=== PATIENT | female | born 1975 | race Caucasian/White ===

== ENCOUNTER 2019-01-15 17:53 | Emergency (ER) | payer OTHER, SELFPAY ==
[2019-01-15 17:56] VITALS: BP 117/78; PULSE 70; RESP 16; TEMP 37.1; O2SAT 100
--- NOTE | 2019-01-15 22:11 | ED_ITS ---
HPI - Wound/Laceration <LARY Cortez - Last Filed: 01/15/19 22:11> General Chief Complaint: Wound/Laceration Stated Complaint: CUT LEFT INDEX FINGER Time Seen by Provider: 01/15/19 19:57 Source: patient and family Mode of arrival: ambulatory Limitations: no limitations History of Present Illness HPI narrative: The patient is a 43-year-old female who states her tetanus is up-to-date who presents with a laceration to the 2nd digit of her left hand. She states her tetanus is up-to-date. She states she cut herself with a sharp kitchen knife. She did not wash it out. She states her range of motion is full. Review of Systems <LARY Cortez - Last Filed: 01/15/19 22:11> Review of Systems GENERAL: Denies chills, fatigue, malaise, fever, sweats. HEENT: Denies sinus pain, ear pain, sore throat, difficulty swallowing, dizziness. RESPIRATORY: Denies dyspnea, cough, wheezing, hemoptysis, sputum. CARDIOVASCULAR: Denies chest pain, palpitations, orthopnea, edema, GASTROINTESTINAL: Denies nausea, vomiting, abdominal pain, diarrhea, constipation, melena. : Denies dysuria, frequency, incontinence, hematuria, urinary retention. MUSCULOSKELETAL: denies weakness, joint pain, or bony pain SKIN: See HPI NEUROLOGIC: Denies weakness, headache, numbness, change in speech, confusion, seizures, incoordination. PSYCHIATRIC: No concerning psychosocial issues. 12 point review of systems is negative except for those stated above Exam <CATARINO Cortez - Last Filed: 01/15/19 22:11> Narrative Exam Narrative: GENERAL: This is a well-nourished, well-developed patient, no acute distress HEAD: Atraumatic. Normocephalic. No temporal or scalp tenderness. EYES: Pupils equal round and reactive. Extraocular motions intact. No scleral icterus. No injection or drainage. ENT: Nose without bleeding, purulent drainage or septal hematoma. Throat without erythema, tonsillar hypertrophy or exudate. Uvula midline. Airway patent. NECK: Trachea midline. No JVD or lymphadenopathy. Supple, nontender, no meningeal signs. CARDIOVASCULAR: Regular rate and rhythm RESPIRATORY: No cough. No increased respiratory effort. No stridor. EXTREMITIES: Full range of motion noted left 2nd digit. Capillary refill less than 2 seconds. Positive radial pulse right hand. BACK: Nontender without deformity or crepitance. No flank tenderness. NEURO: AOx3. SKIN: 0.5 cm avulsion laceration lateral aspect left 2nd digit. Through dermis. No bleeding on exam. No obvious foreign body. No obvious muscle or tendon involvement. Initial Vital Signs Initial Vital Signs: Vital Signs Temperature 98.8 F 01/15/19 17:56 Pulse Rate 70 01/15/19 17:56 Respiratory Rate 16 01/15/19 17:56 Blood Pressure 117/78 01/15/19 17:56 Pulse Oximetry 100 01/15/19 17:56 <Antonio Pierce MD - Last Filed: 01/16/19 06:56> Initial Vital Signs Initial Vital Signs: Vital Signs Temperature 98.8 F 01/15/19 17:56 Pulse Rate 70 01/15/19 17:56 Respiratory Rate 16 01/15/19 17:56 Blood Pressure 117/78 01/15/19 17:56 Pulse Oximetry 100 01/15/19 17:56 Course <LARY Cortez - Last Filed: 01/15/19 22:11> Vital Signs - 8 hr 01/15/19 17:56 Temperature 98.8 F Pulse Rate 70 Respiratory Rate 16 Blood Pressure 117/78 Pulse Oximetry 100 <Antonio Pierce MD - Last Filed: 01/16/19 06:56> Vital Signs - 8 hr 01/15/19 17:56 Temperature 98.8 F Pulse Rate 70 Respiratory Rate 16 Blood Pressure 117/78 Pulse Oximetry 100 MDM - Wound/Laceration <LARY Cortez - Last Filed: 01/15/19 22:11> [facility] Narrative Medical decision making narrative: The patient's wound was cleansed with iodine. She is neurovascularly intact. Given the etiology of the avulsion, I was not able to close the laceration. A dressing was applied. I discussed at length monitoring for signs and symptoms of infections such as redness pus and decreased range of motion. Recommended follow-up with primary care provider. Patient has no questions or concerns on exam. Discharge Plan Departure Patient Disposition: Home Clinical Impression: Avulsion of skin Discharge Date/Time: 01/15/19 22:01 Interventions: ED Discharge Assessment Last Done: 01/15/19 22:01 Instructions: DI for Minor Laceration Activity Restrictions/Additional Instructions: Unfortunately the laceration that you have is unable to be closed. We have lucila ssed it for you. Please monitor for signs and symptoms of infection such as redness from the laceration site, pus and decreased range of motion of the finger pain please follow up with primary care provider if this happens. Please use [id number] pain medications as needed and able. Please come back to the emergency department for any acute concerns such as chest pain, shortness of breath etc. Referrals: Crystal Wilder PA-C [Primary Care Provider] - <Antonio Pierce MD - Last Filed: 01/16/19 06:56> Cosign ED Attending Sandraature Attestation: I was present in the ER at the time of this patient's care. I was available for consultation or to see the patient directly if requested. I agree with the evaluation, assessment and treatment plan noted in the record.
== END 2019-01-15 22:01 | disposition home or self-care (01) ==
PROVIDERS: Emergency Provider Nurse Practitioner Family; PCP Physician Assistant Medical
DX: S61.211A Laceration without foreign body of left index finger without damage to nail, initial encounter (principal); W26.0XXA Contact with knife, initial encounter
CPT/HCPCS: 99282; 99283

== ENCOUNTER 2024-02-14 14:30 | Outpatient (RCR) | payer OTHER, SELFPAY ==
--- NOTE | 2023-12-17 16:55 | PT.OIE ---
Current Diagnoses Lordosis, unspecified, lumbosacral region (12/17/23) Low back pain, unspecified (12/17/23) Muscle weakness (generalized) (12/17/23) Overactive bladder (12/17/23) Stress incontinence (female) (male) (12/17/23) Urge incontinence (12/17/23) Visit Care Team Role Provider Type ALICE Owens Attending Provider Non-Staff Family Provider Primary Care Provider Referring Provider Specialty: Nursing Address: [facility], Fax: Email: Physical Therapy Initial Evaluation PT-OP-A Visit Information Start: 12/07/23 19:17 Freq: Status: Active Protocol: Document 12/17/23 14:34 LRN (Rec: 12/17/23 16:36 LRN [id number]) Out-Patient Physical Therapy Visit Information Visit Information Visit Type Initial Evaluation Visit Start Time 14:34 Visit Stop Time 15:25 Visit Number 1 Evaluation Information Evaluation Date 12/17/23 Precautions Precautions 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 PT-OP-B Current Condition Start: 12/07/23 19:17 Freq: Status: Active Protocol: Document 12/17/23 14:34 LRN (Rec: 12/17/23 16:36 LRN [id number]) Current Condition History of Current Condition Onset Date 3 yrs ago Current Complaints Frequency of urination and urge urinary leakage . History of Current Condition Pt insidious onset 10 yrs ago for urinary incontinence, frequency of urination with urge. She saw a neurologist and was given oxybutynen with increasing potency over the years that never seemed to help. Has been off the medication for 6 months and had no change in her symptoms. 3 yrs ago things worsened to the point that she couldn't hold her urine sometimes for greater than 30 minutes. She has at times been able to go to [place] from [place] before having to stop to usee the bathroom (she uses the bathroom before leaving her house). Prior Treatments and Tests Oxybutynin for past 10 yrs, has been off the medication for 6 months. Developmental History Developmental History 2 daughters ages 21 & 25, both vaginal births w/o complications. First with epiziotomy. Treatment Goals Patient/Caregiver Goals Pt goals: Reduce urinary leakage to be able to kayak or travel 1 hr. Decrease urinary leakage with a cough, sneeze, laugh. Independent HEP at [place]. Current Functional Impairments (Reported) Functional Limitations- ADL's Rides [place] bike every night , 30-45'. 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 Personal Factors Other Personal Factors That May Effect Hx of: Bariatric sleeve Therapy/Recovery surgery, Teresa's disease, Hep A PT-OP-C Subjective Start: 12/07/23 19:17 Freq: Status: Active Protocol: Document 12/17/23 14:34 LRN (Rec: 12/17/23 16:36 LRN [id number]) Patient Questionnaires Pelvic Pain and Urgency/Frequency Patient Symptom Scale Pelvic Pain Score 20 PT-OP-I Pelvic Floor Start: 12/07/23 19:17 Freq: Status: Active Protocol: Document 12/17/23 14:34 LRN (Rec: 12/17/23 16:36 LRN [id number]) Pelvic Floor Assessment Urine Urinary Symptoms Urge Sensation,Falling Out Feeling/Heavy Leakage Cause Cough,Exercise,Sneeze,Urge Other Leakage Causes Laughing Leaks Per Day Constant Voiding Frequency 6x/day Nocturia 3x Pads Used In 24 Hours 2 Washable period underwear/ day Urine Pad Type Depends Bowel Bowel Movement Frequency Every other day [place] Stool Chart Comments Types 2-3 occasionally, mostly type 7 Prolapse Cystocele Grade 2 Perineal Descent Resting Absent Bearing Present Contraction Ability Voluntary Contraction Weak Manual Muscle Testing Left 2 Manual Muscle Testing Right 1 Manual Muscle Testing Anterior 1 Manual Muscle Testing Posterior 2 Muscle Endurance (Seconds) 2 Number of Quick Contractions In 10 5 Seconds Comments Pelvic Floor Comments Pt PF strength of contraction weakened with each contraction . PT-OP-J Posture/Palpation/Skin Start: 12/07/23 19:17 Freq: Status: Active Protocol: Document 12/17/23 14:34 LRN (Rec: 12/17/23 16:36 LRN [id number]) Posture Evaluation Position Standing Head/C-Spine Posture Neutral Position L-Spine Posture Increased Lordosis Shoulder Posture (R) Elevated Scapula Posture (R) Elevated Pelvis Posture Anteriorly Tilted Weight Distribution Balanced Knee Posture (L) Genu Valgus,(R) Genu Valgus Comments Posture Comments Dowagers hump. PT-OP-K Range of Motion Start: 12/07/23 19:17 Freq: Status: Active Protocol: Document 12/17/23 14:34 LRN (Rec: 12/17/23 16:36 LRN [id number]) Lumbar Spine Range of Motion Lumbar Spine Active Degrees Testing Position Standing Flexion 70 Extension 10 Rotation Left 30 Rotation Right 20 Lateral Flexion Left 14 Lateral Flexion Right 8 ROM Limitations Soft Tissue Tightness Hip Goniometric Range of Motion Hip Right Passive Testing Position Supine Abduction 35 Internal Rotation 30 External Rotation 65 Left Passive Testing Position Supine Abduction 35 Internal Rotation 30 External Rotation 60 PT-OP-M Strength Start: 12/07/23 19:17 Freq: Status: Active Protocol: Document 12/17/23 14:34 LRN (Rec: 12/17/23 16:36 LRN [id number]) Trunk Strength Trunk Manual Muscle Testing Core Stabilization Pt has mild rotational core weakness as noted during MMT of LE's. Hip Strength Hip Manual Muscle Testing Right Flexion (L2) 3 Fair Extension (S1) 3 Fair Adduction 3+ Fair+ External Rotation 3 Fair Internal Rotation 3+ Fair+ Comments Strength is 5/5 except as indicated above. Left Flexion (L2) 4 Good Extension (S1) 3 Fair Abduction 4+ Good+ Comments Strength is 5/5 except as indicated above. PT-OP-Q Treatments Start: 12/07/23 19:17 Freq: Status: Active Protocol: Document 12/17/23 14:34 LRN (Rec: 12/17/23 16:36 LRN [id number]) Self-Care/Home Management Treatment Education Other Education Discussed results of evaluation, attendance compliance, goals, and plan of care (POC). Pt agreeable to attendance compliance, goals and POC. Discussed pt to contact referring physician to assess vaginal canal, white chunky discharge. Pt educated in use of Bladder Diary and I/S in tracking for 1 week. Discussed use of 2 different diaries for tracking of bladder. Activities Self-Care/Home Management Activities Issued & reviewed HEP: Kegel ex's and discussed exercise of Quick Flicks, Long Holds and Aggravators. PT-OP-T Assessment and Plan Start: 12/07/23 19:17 Freq: Status: Active Protocol: Document 12/17/23 14:34 LRN (Rec: 12/17/23 16:36 LRN [id number]) Physical Therapy Assessment Rehab Potential Rehabilitation Potential Good Evaluation Complexity Number of Personal Factors/Comorbidities 1-2 Number of Body Systems Impaired 4 or More Clinical Presentation at Evaluation Evolving Impairments Impairments Activity Tolerance,Pain, Posture,ROM,Strength,Transfers Other Impairments White chunky discharge in vaginal canal. Goals Four Impairment LBP stiffness first in the morning. Impairment Trunk AROM: flex 70 deg's, Rot 30 deg's L, 20 deg's R; SB is 14 deg's L, 8 deg's R. Halfway Goal (LTG) Decrease LB stiffness in the morning to improve mobility to get to bathroom first in the morning.. LTG Duration 12 wks-03/10/24 Three Impairment Urge urinary incontinence Impairment PF contraction fatigues after 2 secs hold. Short Term Goal (STG) Pt will be educated in PF urge deference technique to delay urination until toilet voiding . STG Duration 4 wks-01/14/24 Halfway Goal (LTG) Improve PF endurance strength and modify pt's behavior such that the pt will be able to reduce and eliminate urinary leakage to be able to kayak or travel over 1 hr without having to stop to use the bathroom. LTG Duration 12 wks-03/10/24 Two Impairment Urinary Leakage with cough, sneeze, laugh, exercise Impairment PF strength: anterior & R lateral wall - 1/5; posterior & L lateral wall - 2/5 Short Term Goal (STG) Pt will be able to perform 10 Quick PF contractions in isolation of substitute muscles prior to fatigue. STG Duration 6 wks-01/28/24 Halfway Goal (LTG) Improve PF Quick Contraction strength to 3/5 with pt able to eliminate urinary leakage with a cough, sneeze, laugh. LTG Duration 12 wks-03/10/24 One Impairment Pt lacks an independent self care HEP. Short Term Goal (STG) Pt educated in proper transfers to lessen core abdominal pressure with transfers and ADLs. STG Duration 4 wks-01/14/24 Halfway Goal (LTG) Pt will be independent in a self care HEP for PF/hip/core strengthening and hip/trunk ROM exercises. LTG Duration 12 wks-03/10/24 Assessment Summary Assessment Pt is a 48 yo female who appears to have urge incontinence (further assessed after return of bladder diary ) and PF weakness of strength and endurance as well as a cystocele grade 1, and Hip weakness, R>L hip, decreased LB mobility and mornings report of pain and stiff. The pt has a white chunky discharge in her vaginal canal ; therefore the pt is being referred back for further assesment. The pt will benefit from skilled physical therapy to work towards meeting the above stated goals . Physical Therapy Plan Frequency and Duration Frequency of Treatment 1x/Week Duration of treatment (weeks) 12 Plan of Care Start Date 12/17/23 Plan of Care End Date 03/10/24 Therapeutic Interventions Therapeutic Interventions Home Exercise Program,Joint Mobilizations,Manual Therapy, Neuromuscular Re-education, Patient/Caregiver Education, Soft Tissue Mobilization, Therapeutic Activities, Therapeutic Exercises Modalities Biofeedback,Cold Pack/Ice Massage,Electric Stimulation, Hot Packs Next Visit Focus/Plan Next Note Type Treatment Note Next Visit Plan Review bladder diary and make recommendation for proper fluid/food intake, norms for hydration levels/voiding frequency/voiding times; pt education in bladder retraining with urge deference technique, proper Kegel without use of substitute muscles. Education in reduction of intra-abdominal pressure & proper deep breathing with transfers and body mechanics. Education: PF hygiene/care, as needed: proper BM with modifications, bowel care and program. Ex: Bowel massage (if needed) , proper breathing, PF strengthening, Core/TA stab/ strengthening, hip strengthening; trunk and hip stretching. POC: Pt education, Manual therapy. ? (if no infection) Biofeedback with vaginal sensor. Therapeutic Exercises, Therapeutic Activities, Neuromuscular Reeducation.
--- NOTE | 2023-12-24 15:49 | PT.OTN ---
Current Diagnoses Lordosis, unspecified, lumbosacral region (12/24/23) Low back pain, unspecified (12/24/23) Muscle weakness (generalized) (12/24/23) Overactive bladder (12/24/23) Stress incontinence (female) (male) (12/24/23) Urge incontinence (12/24/23) Physical Therapy Treatment Note PT-OP-A Visit Information Start: 12/07/23 19:17 Freq: Status: Active Protocol: Document 12/24/23 14:40 LRN (Rec: 12/24/23 15:49 LRN [id number]) Out-Patient Physical Therapy Visit Information Visit Information Visit Type Treatment Note Visit Start Time 14:40 Visit Stop Time 15:20 Visit Number 2 Evaluation Information Evaluation Date 12/17/23 Precautions Precautions 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 PT-OP-B Current Condition Start: 12/07/23 19:17 Freq: Status: Active Protocol: Document 12/17/23 14:34 LRN (Rec: 12/17/23 16:36 LRN [id number]) Current Condition History of Current Condition Onset Date 3 yrs ago Current Complaints Frequency of urination and urge urinary leakage . History of Current Condition Pt insidious onset 10 yrs ago for urinary incontinence, frequency of urination with urge. She saw a neurologist and was given oxybutynen with increasing potency over the years that never seemed to help. Has been off the medication for 6 months and had no change in her symptoms. 3 yrs ago things worsened to the point that she couldn't hold her urine sometimes for greater than 30 minutes. She has at times been able to go to [place] from [place] before having to stop to usee the bathroom (she uses the bathroom before leaving her house). Prior Treatments and Tests Oxybutynin for past 10 yrs, has been off the medication for 6 months. Developmental History Developmental History 2 daughters ages 21 & 25, both vaginal births w/o complications. First with epiziotomy. Treatment Goals Patient/Caregiver Goals Pt goals: Reduce urinary leakage to be able to kayak or travel 1 hr. Decrease urinary leakage with a cough, sneeze, laugh. Independent HEP at [place]. Current Functional Impairments (Reported) Functional Limitations- ADL's Rides [place] bike every night , 30-45'. 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 Personal Factors Other Personal Factors That May Effect Hx of: Bariatric sleeve Therapy/Recovery surgery, Teresa's disease, Hep A PT-OP-C Subjective Start: 12/07/23 19:17 Freq: Status: Active Protocol: Document 12/24/23 14:40 LRN (Rec: 12/24/23 15:49 LRN [id number]) OP-PT Subjective Patient Comments Patient Comments States her bladder is very consistent. Kegels 2x/day. January 06 appt with flight paramedic PT-OP-I Pelvic Floor Start: 12/07/23 19:17 Freq: Status: Active Protocol: Document 12/17/23 14:34 LRN (Rec: 12/17/23 16:36 LRN [id number]) Pelvic Floor Assessment Urine Urinary Symptoms Urge Sensation,Falling Out Feeling/Heavy Leakage Cause Cough,Exercise,Sneeze,Urge Other Leakage Causes Laughing Leaks Per Day Constant Voiding Frequency 6x/day Nocturia 3x Pads Used In 24 Hours 2 Washable period underwear/ day Urine Pad Type Depends Bowel Bowel Movement Frequency Every other day [place] Stool Chart Comments Types 2-3 occasionally, mostly type 7 Prolapse Cystocele Grade 2 Perineal Descent Resting Absent Bearing Present Contraction Ability Voluntary Contraction Weak Manual Muscle Testing Left 2 Manual Muscle Testing Right 1 Manual Muscle Testing Anterior 1 Manual Muscle Testing Posterior 2 Muscle Endurance (Seconds) 2 Number of Quick Contractions In 10 5 Seconds Comments Pelvic Floor Comments Pt PF strength of contraction weakened with each contraction . PT-OP-J Posture/Palpation/Skin Start: 12/07/23 19:17 Freq: Status: Active Protocol: Document 12/17/23 14:34 LRN (Rec: 12/17/23 16:36 LRN [id number]) Posture Evaluation Position Standing Head/C-Spine Posture Neutral Position L-Spine Posture Increased Lordosis Shoulder Posture (R) Elevated Scapula Posture (R) Elevated Pelvis Posture Anteriorly Tilted Weight Distribution Balanced Knee Posture (L) Genu Valgus,(R) Genu Valgus Comments Posture Comments Dowagers hump. PT-OP-K Range of Motion Start: 12/07/23 19:17 Freq: Status: Active Protocol: Document 12/17/23 14:34 LRN (Rec: 12/17/23 16:36 LRN [id number]) Lumbar Spine Range of Motion Lumbar Spine Active Degrees Testing Position Standing Flexion 70 Extension 10 Rotation Left 30 Rotation Right 20 Lateral Flexion Left 14 Lateral Flexion Right 8 ROM Limitations Soft Tissue Tightness Hip Goniometric Range of Motion Hip Right Passive Testing Position Supine Abduction 35 Internal Rotation 30 External Rotation 65 Left Passive Testing Position Supine Abduction 35 Internal Rotation 30 External Rotation 60 PT-OP-M Strength Start: 12/07/23 19:17 Freq: Status: Active Protocol: Document 12/17/23 14:34 LRN (Rec: 12/17/23 16:36 LRN [id number]) Trunk Strength Trunk Manual Muscle Testing Core Stabilization Pt has mild rotational core weakness as noted during MMT of LE's. Hip Strength Hip Manual Muscle Testing Right Flexion (L2) 3 Fair Extension (S1) 3 Fair Adduction 3+ Fair+ External Rotation 3 Fair Internal Rotation 3+ Fair+ Comments Strength is 5/5 except as indicated above. Left Flexion (L2) 4 Good Extension (S1) 3 Fair Abduction 4+ Good+ Comments Strength is 5/5 except as indicated above. PT-OP-Q Treatments Start: 12/07/23 19:17 Freq: Status: Active Protocol: Document 12/24/23 14:40 LRN (Rec: 12/24/23 15:49 LRN [id number]) Therapeutic Exercises Supine Exercises Kegel w/ball squeeze Supine Exercise Name Kegel/ball squeeze w/retighten every 3, and Kegel/ after 3 ,balls squeeze Equipment Used Ball Reps/Minutes 10 SH w/retightening every 3 secs if needed Kegel Supine Exercise Name Kegel long and quick contractions and in isolation of substitute ms. Reps/Minutes 12' Comments Extra time to train for isolation of PF ms Therapeutic Activity Therapeutic Activity Transfer training coordinating breathwork Name Sup>Sit coordinating breathwork with each movement Reps/Minutes 3' Comments Verbal and phy cuing needed to perform correctly. Bladder retraining Name Urge deference technique training Reps/Minutes 5' Comments Extra time needed for discussion and training. Pt needed v cuing with each stage of training. Self-Care/Home Management Treatment Education Other Education Reviewed Bladder diary and discussed consistency of urination of every 2-3 hrs, even into the night, fluid intake/output and norms for hydration levels, diet needing more vegs and more fluids, and voiding frequency/voiding times, decreasing fluids at night with more fluid consumption during the day. Pt hydration norm is 97 oz (1/ 2 body wgt), pt is drinking 50 oz. Discussed the POC for retraining the bladder. Pt education in bladder irritants & Kegel without use of substitute muscles. Activities Self-Care/Home Management Activities Issued handout for Bladder retraining and Foods/Beverages Bladder Diet. PT-OP-T Assessment and Plan Start: 12/07/23 19:17 Freq: Status: Active Protocol: Document 12/24/23 14:40 LRN (Rec: 12/24/23 15:49 LRN [id number]) Physical Therapy Assessment Goals Four Impairment LBP stiffness first in the morning. Impairment Trunk AROM: flex 70 deg's, Rot 30 deg's L, 20 deg's R; SB is 14 deg's L, 8 deg's R. [facility] Goal (LTG) Decrease LB stiffness in the morning to improve mobility to get to bathroom first in the morning. LTG Duration 12 wks-03/10/24 Three Impairment Urge urinary incontinence Impairment PF contraction fatigues after 2 secs hold. Short Term Goal (STG) Pt will be educated in PF urge deference technique to delay urination until toilet voiding . 12/24/23: Pt educated and practiced Urge deference technique. 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 LTG Duration 12 wks-03/10/24 Two Impairment Urinary Leakage with cough, sneeze, laugh, exercise Impairment PF strength: anterior & R lateral wall - 1/5; posterior & L lateral wall - 2/5 Short Term Goal (STG) Pt will be able to perform 10 Quick PF contractions in isolation of substitute muscles prior to fatigue. STG Duration 6 wks-01/28/24 Food And Beverage Manager Goal (LTG) Improve PF Quick Contraction strength to 3/5 with pt able to eliminate urinary leakage with a cough, sneeze, laugh. LTG Duration 12 wks-03/10/24 One Impairment Pt lacks an independent self care HEP. Short Term Goal (STG) Pt educated in proper transfers to lessen core abdominal pressure with transfers and ADLs. 12/24/23: Initiated core pressure mgmt training for sup >sit. STG Duration 4 wks-01/14/24 progressed [facility] Goal (LTG) Pt will be independent in a self care HEP for PF/hip/core strengthening and hip/trunk ROM exercises. 12/24/23: I/S pt in isolated Kegel with Ball squeeze. LTG Duration 12 wks-03/10/24 progressed 12/24/23 Assessment Summary Assessment Pt is a 48 yo female who appears to have urge incontinence and habits that contribute to her frequency of voiding and need to urinate; another cause of urinary leakage is PF weakness of strength and endurance as well as a cystocele grade 1, and hip weakness, R>L hip, decreased LB mobility and mornings report of pain and stiff. Per bladder diary review, she shows a very regular bladder of voiding frequency every 2-3 hrs, due to consistent behaviors with low hydration, GI constipation with decreased vege intake. Today the pt showed good understanding of isolating her PF with contractions after training, and she notes weakening of her PF contraction after 2 secs of holding. She tends to breathhold w/mvmt and ex, and uses substitute ms with a Kegel. Physical Therapy Plan Frequency and Duration Frequency of Treatment 1x/Week Duration of treatment (weeks) 12 Plan of Care Start Date 12/17/23 Plan of Care End Date 03/10/24 Next Visit Focus/Plan Next Note Type Treatment Note Next Visit Plan Complete education in reduction of intra-abdominal pressure & proper deep breathing with transfers and body mechanics. Education: PF hygiene/care, as needed: proper BM with modifications, bowel care and program. Ex: Bowel massage (if needed) , proper breathing, PF strengthening, Core/TA stab/ strengthening, hip strengthening; trunk and hip stretching. POC: Pt education, Manual therapy. ? (if no infection) Biofeedback with vaginal sensor. Therapeutic Exercises, Therapeutic Activities, Neuromuscular Reeducation.
--- NOTE | 2023-12-31 15:38 | PT.OTN ---
Current Diagnoses Lordosis, unspecified, lumbosacral region (12/31/23) Low back pain, unspecified (12/31/23) Muscle weakness (generalized) (12/31/23) Overactive bladder (12/31/23) Stress incontinence (female) (male) (12/31/23) Urge incontinence (12/31/23) Physical Therapy Treatment Note PT-OP-A Visit Information Start: 12/07/23 19:17 Freq: Status: Active Protocol: Document 12/31/23 14:36 LRN (Rec: 12/31/23 15:38 LRN [id number]) Out-Patient Physical Therapy Visit Information Visit Information Visit Type Treatment Note Visit Start Time 14:35 Visit Stop Time 15:16 Visit Number 3 Evaluation Information Evaluation Date 12/17/23 Precautions Precautions History of Bariatic sleeve surgery, 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 PT-OP-B Current Condition Start: 12/07/23 19:17 Freq: Status: Active Protocol: Document 12/17/23 14:34 LRN (Rec: 12/17/23 16:36 LRN [id number]) Current Condition History of Current Condition Onset Date 3 yrs ago Current Complaints Frequency of urination and urge urinary leakage . History of Current Condition Pt insidious onset 10 yrs ago for urinary incontinence, frequency of urination with urge. She saw a neurologist and was given oxybutynen with increasing potency over the years that never seemed to help. Has been off the medication for 6 months and had no change in her symptoms. 3 yrs ago things worsened to the point that she couldn't hold her urine sometimes for greater than 30 minutes. She has at times been able to go to [place] from [place] before having to stop to usee the bathroom (she uses the bathroom before leaving her house). Prior Treatments and Tests Oxybutynin for past 10 yrs, has been off the medication for 6 months. Developmental History Developmental History 2 daughters ages 21 & 25, both vaginal births w/o complications. First with epiziotomy. Treatment Goals Patient/Caregiver Goals Pt goals: Reduce urinary leakage to be able to kayak or travel 1 hr. Decrease urinary leakage with a cough, sneeze, laugh. Independent HEP at [facility]. Current Functional Impairments (Reported) Functional Limitations- ADL's Rides [place] bike every night , 30-45'. 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 Personal Factors Other Personal Factors That May Effect Hx of: Bariatric sleeve Therapy/Recovery surgery, Teresa's disease, Hep A PT-OP-C Subjective Start: 12/07/23 19:17 Freq: Status: Active Protocol: Document 12/31/23 14:36 LRN (Rec: 12/31/23 15:38 LRN [id number]) OP-PT Subjective Patient Comments Patient Comments Doing Kegels. Noticed she could hold her urine longer than typical (an hour, holding a total of 3 hrs), fluid intake was normal. LBP occasional /10. Has increased fiber and water. PT-OP-I Pelvic Floor Start: 12/07/23 19:17 Freq: Status: Active Protocol: Document 12/17/23 14:34 LRN (Rec: 12/17/23 16:36 LRN [id number]) Pelvic Floor Assessment Urine Urinary Symptoms Urge Sensation,Falling Out Feeling/Heavy Leakage Cause Cough,Exercise,Sneeze,Urge Other Leakage Causes Laughing Leaks Per Day Constant Voiding Frequency 6x/day Nocturia 3x Pads Used In 24 Hours 2 Washable period underwear/ day Urine Pad Type Depends Bowel Bowel Movement Frequency Every other day [place] Stool Chart Comments Types 2-3 occasionally, mostly type 7 Prolapse Cystocele Grade 2 Perineal Descent Resting Absent Bearing Present Contraction Ability Voluntary Contraction Weak Manual Muscle Testing Left 2 Manual Muscle Testing Right 1 Manual Muscle Testing Anterior 1 Manual Muscle Testing Posterior 2 Muscle Endurance (Seconds) 2 Number of Quick Contractions In 10 5 Seconds Comments Pelvic Floor Comments Pt PF strength of contraction weakened with each contraction . PT-OP-J Posture/Palpation/Skin Start: 12/07/23 19:17 Freq: Status: Active Protocol: Document 12/17/23 14:34 LRN (Rec: 12/17/23 16:36 LRN [id number]) Posture Evaluation Position Standing Head/C-Spine Posture Neutral Position L-Spine Posture Increased Lordosis Shoulder Posture (R) Elevated Scapula Posture (R) Elevated Pelvis Posture Anteriorly Tilted Weight Distribution Balanced Knee Posture (L) Genu Valgus,(R) Genu Valgus Comments Posture Comments Dowagers hump. PT-OP-K Range of Motion Start: 12/07/23 19:17 Freq: Status: Active Protocol: Document 12/17/23 14:34 LRN (Rec: 12/17/23 16:36 LRN [id number]) Lumbar Spine Range of Motion Lumbar Spine Active Degrees Testing Position Standing Flexion 70 Extension 10 Rotation Left 30 Rotation Right 20 Lateral Flexion Left 14 Lateral Flexion Right 8 ROM Limitations Soft Tissue Tightness Hip Goniometric Range of Motion Hip Right Passive Testing Position Supine Abduction 35 Internal Rotation 30 External Rotation 65 Left Passive Testing Position Supine Abduction 35 Internal Rotation 30 External Rotation 60 PT-OP-M Strength Start: 12/07/23 19:17 Freq: Status: Active Protocol: Document 12/17/23 14:34 LRN (Rec: 12/17/23 16:36 LRN [id number]) Trunk Strength Trunk Manual Muscle Testing Core Stabilization Pt has mild rotational core weakness as noted during MMT of LE's. Hip Strength Hip Manual Muscle Testing Right Flexion (L2) 3 Fair Extension (S1) 3 Fair Adduction 3+ Fair+ External Rotation 3 Fair Internal Rotation 3+ Fair+ Comments Strength is 5/5 except as indicated above. Left Flexion (L2) 4 Good Extension (S1) 3 Fair Abduction 4+ Good+ Comments Strength is 5/5 except as indicated above. PT-OP-Q Treatments Start: 12/07/23 19:17 Freq: Status: Active Protocol: Document 12/31/23 14:36 LRN (Rec: 12/31/23 15:38 LRN [id number]) Therapeutic Exercises Supine Exercises Kegel w/ball squeeze Supine Exercise Name Kegel/ball squeeze w/retighten every 2-3 Equipment Used Ball Reps/Minutes 10 SH w/retightening every 3 secs if needed Comments Cued to check for PF contraction hold after 2 sec, then 3 secs. Kegel Supine Exercise Name Kegel long and quick contractions and in isolation of substitute ms. Reps/Minutes 9' Comments Extra time to train for isolation of PF ms Therapeutic Activity Therapeutic Activity ADL body mechanics w/Kegel/breathwork Name ADL body mechanics w/Kegel/ breathwork Reps/Minutes 8' Bowel program training Name Bowel Program Reps/Minutes 13' Comments Reviewed diet for bowel program & discussed and taught Bowel massage. Bowel Massage training. Self-Care/Home Management Treatment Activities Self-Care/Home Management Activities Issued & reviewed handouts for : Bowel massage & Bowel Care program. PT-OP-T Assessment and Plan Start: 12/07/23 19:17 Freq: Status: Active Protocol: Document 12/31/23 14:36 LRN (Rec: 12/31/23 15:38 LRN [id number]) Physical Therapy Assessment Goals Four Impairment LBP stiffness first in the morning. Impairment Trunk AROM: flex 70 deg's, Rot 30 deg's L, 20 deg's R; SB is 14 deg's L, 8 deg's R. Occasional LBP 11/10. Nursing Home Goal (LTG) Decrease LB stiffness in the morning to improve mobility to get to bathroom first in the morning. 12/31/23: 10% less low back stiffness. LTG Duration 12 wks-03/10/24 progressing 12/31/23 Three Impairment Urge urinary incontinence Impairment PF contraction fatigues after 2 secs hold. Short Term Goal (STG) Pt will be educated in PF urge deference technique to delay urination until toilet voiding . 12/24/23: Pt educated and practiced Urge deference technique. STG Duration 4 wks-01/14/24 (12/24/23: MET GOAL) Ferryboat Operator Helper Goal (LTG) Improve PF endurance strength and modify pt's behavior such that the pt will be able to reduce and eliminate urinary leakage to be able to kayak or travel over 1 hr without having to stop to use the bathroom. LTG Duration 12 wks-03/10/24 Two Impairment Urinary Leakage with cough, sneeze, laugh, exercise Impairment PF strength: anterior & R lateral wall - 1/5; posterior & L lateral wall - 2/5 Short Term Goal (STG) Pt will be able to perform 10 Quick PF contractions in isolation of substitute muscles prior to fatigue. STG Duration 6 wks-01/28/24 Nursing Home Goal (LTG) Improve PF Quick Contraction strength to 3/5 with pt able to eliminate urinary leakage with a cough, sneeze, laugh. LTG Duration 12 wks-03/10/24 One Impairment Pt lacks an independent self care HEP. Short Term Goal (STG) Pt educated in proper transfers to lessen core abdominal pressure with transfers and ADLs. 12/24/23: Initiated core pressure mgmt training for sup >sit. 12/31/23: Pt educated in core pressure mgmt of ADL body mechanics. STG Duration 4 wks-01/14/24 (12/31/23: MET GOAL) Nursing Home Goal (LTG) Pt will be independent in a self care HEP for PF/hip/core strengthening and hip/trunk ROM exercises. 12/24/23: I/S pt in isolated Kegel with Ball squeeze. 12/31/23: I/S pt in Kegel with ADLs and transfers, hold 3 secs or greater. LTG Duration 12 wks-03/10/24 progressed 12/31/23 Assessment Summary Assessment 48 yo fem w/urge incontinence and habits that contribute to incr'd voiding & need to urinate; urinary leakage due to PF weakness and low endurance w/cystocele grade 1; and R>L hip weakness, decreased LB mobility w/AM pain and stiff. Today the pt reports having 10% less stiffness, and had 3 hrs between voids x 1 w/o urinary leakage. Pt receptive to Bowel care and body mechanics training. Physical Therapy Plan Frequency and Duration Frequency of Treatment 1x/Week Duration of treatment (weeks) 12 Plan of Care Start Date 12/17/23 Plan of Care End Date 03/10/24 Next Visit Focus/Plan Next Note Type Treatment Note Next Visit Plan Next: Assess response to bowel care program and review Bowel massage. Education: PF hygiene/care, as needed: proper BM with modifications (squatty potty). Ex: proper breathing, PF strengthening, Core/TA stab/ strengthening, hip strengthening; trunk and hip stretching. POC: Pt education, Manual therapy. ? (if no infection) Biofeedback with vaginal sensor. Therapeutic Exercises, Therapeutic Activities, Neuromuscular Reeducation.
--- NOTE | 2024-01-14 15:42 | PT.OTN ---
Current Diagnoses Lordosis, unspecified, lumbosacral region (01/14/24) Low back pain, unspecified (01/14/24) Muscle weakness (generalized) (01/14/24) Overactive bladder (01/14/24) Stress incontinence (female) (male) (01/14/24) Urge incontinence (01/14/24) Physical Therapy Treatment Note PT-OP-A Visit Information Start: 12/07/23 19:17 Freq: Status: Active Protocol: Document 01/14/24 14:40 LRN (Rec: 01/14/24 15:38 LRN [id number]) Out-Patient Physical Therapy Visit Information Visit Information Visit Type Treatment Note Visit Start Time 14:40 Visit Stop Time 15:22 Visit Number 4 Evaluation Information Evaluation Date 12/17/23 Precautions Precautions History of Bariatic sleeve surgery, 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 PT-OP-B Current Condition Start: 12/07/23 19:17 Freq: Status: Active Protocol: Document 12/17/23 14:34 LRN (Rec: 12/17/23 16:36 LRN [id number]) Current Condition History of Current Condition Onset Date 3 yrs ago Current Complaints Frequency of urination and urge urinary leakage . History of Current Condition Pt insidious onset 10 yrs ago for urinary incontinence, frequency of urination with urge. She saw a neurologist and was given oxybutynen with increasing potency over the years that never seemed to help. Has been off the medication for 6 months and had no change in her symptoms. 3 yrs ago things worsened to the point that she couldn't hold her urine sometimes for greater than 30 minutes. She has at times been able to go to [place] from [place] before having to stop to usee the bathroom (she uses the bathroom before leaving her house). Prior Treatments and Tests Oxybutynin for past 10 yrs, has been off the medication for 6 months. Developmental History Developmental History 2 daughters ages 21 & 25, both vaginal births w/o complications. First with epiziotomy. Treatment Goals Patient/Caregiver Goals Pt goals: Reduce urinary leakage to be able to kayak or travel 1 hr. Decrease urinary leakage with a cough, sneeze, laugh. Independent HEP at [place]. Current Functional Impairments (Reported) Functional Limitations- ADL's Rides [place] bike every night , 30-45'. 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 Personal Factors Other Personal Factors That May Effect Hx of: Bariatric sleeve Therapy/Recovery surgery, Teresa's disease, Hep A PT-OP-C Subjective Start: 12/07/23 19:17 Freq: Status: Active Protocol: Document 01/14/24 14:40 LRN (Rec: 01/14/24 15:38 LRN [id number]) OP-PT Subjective Patient Comments Patient Comments Went to last sunday and was told she had a bacterial infection in vagina, has been on high dose of anti-biotic for past week, one more dose left. PT-OP-I Pelvic Floor Start: 12/07/23 19:17 Freq: Status: Active Protocol: Document 12/17/23 14:34 LRN (Rec: 12/17/23 16:36 LRN [id number]) Pelvic Floor Assessment Urine Urinary Symptoms Urge Sensation,Falling Out Feeling/Heavy Leakage Cause Cough,Exercise,Sneeze,Urge Other Leakage Causes Laughing Leaks Per Day Constant Voiding Frequency 6x/day Nocturia 3x Pads Used In 24 Hours 2 Washable period underwear/ day Urine Pad Type Depends Bowel Bowel Movement Frequency Every other day [place] Stool Chart Comments Types 2-3 occasionally, mostly type 7 Prolapse Cystocele Grade 2 Perineal Descent Resting Absent Bearing Present Contraction Ability Voluntary Contraction Weak Manual Muscle Testing Left 2 Manual Muscle Testing Right 1 Manual Muscle Testing Anterior 1 Manual Muscle Testing Posterior 2 Muscle Endurance (Seconds) 2 Number of Quick Contractions In 10 5 Seconds Comments Pelvic Floor Comments Pt PF strength of contraction weakened with each contraction . PT-OP-J Posture/Palpation/Skin Start: 12/07/23 19:17 Freq: Status: Active Protocol: Document 12/17/23 14:34 LRN (Rec: 12/17/23 16:36 LRN [id number]) Posture Evaluation Position Standing Head/C-Spine Posture Neutral Position L-Spine Posture Increased Lordosis Shoulder Posture (R) Elevated Scapula Posture (R) Elevated Pelvis Posture Anteriorly Tilted Weight Distribution Balanced Knee Posture (L) Genu Valgus,(R) Genu Valgus Comments Posture Comments Dowagers hump. PT-OP-K Range of Motion Start: 12/07/23 19:17 Freq: Status: Active Protocol: Document 12/17/23 14:34 LRN (Rec: 12/17/23 16:36 LRN [id number]) Lumbar Spine Range of Motion Lumbar Spine Active Degrees Testing Position Standing Flexion 70 Extension 10 Rotation Left 30 Rotation Right 20 Lateral Flexion Left 14 Lateral Flexion Right 8 ROM Limitations Soft Tissue Tightness Hip Goniometric Range of Motion Hip Right Passive Testing Position Supine Abduction 35 Internal Rotation 30 External Rotation 65 Left Passive Testing Position Supine Abduction 35 Internal Rotation 30 External Rotation 60 PT-OP-M Strength Start: 12/07/23 19:17 Freq: Status: Active Protocol: Document 12/17/23 14:34 LRN (Rec: 12/17/23 16:36 LRN [id number]) Trunk Strength Trunk Manual Muscle Testing Core Stabilization Pt has mild rotational core weakness as noted during MMT of LE's. Hip Strength Hip Manual Muscle Testing Right Flexion (L2) 3 Fair Extension (S1) 3 Fair Adduction 3+ Fair+ External Rotation 3 Fair Internal Rotation 3+ Fair+ Comments Strength is 5/5 except as indicated above. Left Flexion (L2) 4 Good Extension (S1) 3 Fair Abduction 4+ Good+ Comments Strength is 5/5 except as indicated above. PT-OP-Q Treatments Start: 12/07/23 19:17 Freq: Status: Active Protocol: Document 01/14/24 14:40 LRN (Rec: 01/14/24 15:38 LRN [id number]) Therapeutic Exercises Supine Exercises Piriformis stretch Side bilateral Reps/Minutes 60 SH x 1 Comments Extra time to determine max tolerated stretch Trunk rot LTR Supine Exercise Name Very small movements to avoid discomfort. Side bilateral Reps/Minutes 1-2 SH x 10 Comments Cued not to move into pain. SKTC Side bilateral Reps/Minutes 10 SH x 5 Comments Cued to not stretch into pain. Bowel Massage Supine Exercise Name Slow CCW circles Reps/Minutes 6' Kegel w/ball squeeze Supine Exercise Name Kegel/ball squeeze w/retighten every 2-3 Equipment Used Ball Reps/Minutes 6' Comments Cued to check for PF contraction hold after 7 sec, then rest 14 secs. Therapeutic Activity Therapeutic Activity ADL body mechanics w/Kegel/breathwork Name ADL body mechanics w/Kegel/ breathwork Reps/Minutes 11' Transfer training coordinating breathwork Name Sup>Sit<>stand coordinating breathwork with each movement Reps/Minutes 6' Comments Verbal and phy cuing needed to perform correctly. Self-Care/Home Management Treatment Education Patient Education Body Mechanics,Home Exercise Program,Posture Other Education Educated pt in use of squatty potty. Educated pt in [place] to Safe Movement: stress on low back in all positions. Activities Self-Care/Home Management Activities Issued & reviewed handouts for : -HEP: SKTC and Piriformis ( knee to opp shoulder) stretch. -Sup>Sit<>stand coordinating breathwork/Kegel with each movement -Squatt Potty. -Proper Posture: [place] to Safe Movement -ADLs body mechanics. PT-OP-T Assessment and Plan Start: 12/07/23 19:17 Freq: Status: Active Protocol: Document 01/14/24 14:40 LRN (Rec: 01/14/24 15:38 LRN [id number]) Physical Therapy Assessment Goals Four Impairment LBP stiffness first in the morning. Impairment Trunk AROM: flex 70 deg's, Rot 30 deg's L, 20 deg's R; SB is 14 deg's L, 8 deg's R. Occasional LBP 3/10. Intermediate Goal (LTG) Decrease LB stiffness in the morning to improve mobility to get to bathroom first in the morning. 12/31/23: 10% less low back stiffness. 01/14/24: HEP: KTC and Piriformis stretch. Trial LTR , but pt had discomfort with movement. LTG Duration 12 wks-03/10/24 progressing 01/14/24 Three Impairment Urge urinary incontinence Impairment PF contraction fatigues after 2 secs hold. Short Term Goal (STG) Pt will be educated in PF urge deference technique to delay urination until toilet voiding . 12/24/23: Pt educated and practiced Urge deference technique. STG Duration 4 wks-01/14/24 (12/24/23: MET GOAL) Intermediate Goal (LTG) Improve PF endurance strength and modify pt's behavior such that the pt will be able to reduce and eliminate urinary leakage to be able to kayak or travel over 1 hr without having to stop to use the bathroom. LTG Duration 12 wks-03/10/24 Two Impairment Urinary Leakage with cough, sneeze, laugh, exercise Impairment PF strength: anterior & R lateral wall - 1/5; posterior & L lateral wall - 2/5 Short Term Goal (STG) Pt will be able to perform 10 Quick PF contractions in isolation of substitute muscles prior to fatigue. STG Duration 6 wks-01/28/24 Intermediate Goal (LTG) Improve PF Quick Contraction strength to 3/5 with pt able to eliminate urinary leakage with a cough, sneeze, laugh. LTG Duration 12 wks-03/10/24 One Impairment Pt lacks an independent self care HEP. Short Term Goal (STG) Pt educated in proper transfers to lessen core abdominal pressure with transfers and ADLs. 12/24/23: Initiated core pressure mgmt training for sup >sit. 12/31/23: Pt educated in core pressure mgmt of ADL body mechanics. STG Duration 4 wks-01/14/24 (12/31/23: MET GOAL) Intermediate Goal (LTG) Pt will be independent in a self care HEP for PF/hip/core strengthening and hip/trunk ROM exercises. 12/24/23: I/S pt in isolated Kegel with Ball squeeze. 12/31/23: I/S pt in Kegel with ADLs and transfers, hold 3 secs or greater. 01/14/24: HEP: Supine SKTC & Piriformis stretch LTG Duration 12 wks-03/10/24 progressed 01/20/24 Assessment Summary Assessment 48 yo fem w/urge incontinence and habits that contribute to frequent voiding & need to urinate; urinary leakage due to PF weakness and low endurance w/cystocele grade 1; and R>L hip weakness, decreased LB mobility w/AM pain and stiff. Pt has had less bloating with Bowel massage, and more fiber into diet firmed stool; no notable change with bowel program with addition of drinking warm water after BM. No change in urinary habits noted by pt with use of anti-biotics, pt still voiding every 2 hrs. Physical Therapy Plan Frequency and Duration Frequency of Treatment 1x/Week Duration of treatment (weeks) 12 Plan of Care Start Date 12/17/23 Plan of Care End Date 03/10/24 Next Visit Focus/Plan Next Note Type Treatment Note Next Visit Plan Next: Pt education in PF hygiene/care, review if pt using Squatty potty at home, review issued HEP. Ex: proper breathing assess deep breathing, PF strengthening, Core/TA stab/ strengthening, hip strengthening (R>L); trunk and hip stretching. When cleared of vaginal infection, can start if needed Vemg biofeedback and strengthening. POC: Pt education, Manual therapy. ? (if no infection) Biofeedback with vaginal sensor. Therapeutic Exercises, Therapeutic Activities, Neuromuscular Reeducation.
--- NOTE | 2024-01-21 15:40 | PT.OTN ---
Current Diagnoses Lordosis, unspecified, lumbosacral region (01/21/24) Low back pain, unspecified (01/21/24) Muscle weakness (generalized) (01/21/24) Overactive bladder (01/21/24) Stress incontinence (female) (male) (01/21/24) Urge incontinence (01/21/24) Physical Therapy Treatment Note PT-OP-A Visit Information Start: 12/07/23 19:17 Freq: Status: Active Protocol: Document 01/21/24 14:42 LRN (Rec: 01/21/24 15:38 LRN [id number]) Out-Patient Physical Therapy Visit Information Visit Information Visit Type Treatment Note Visit Start Time 14:42 Visit Stop Time 15:22 Visit Number 5 Evaluation Information Evaluation Date 12/17/23 Precautions Precautions History of Bariatic sleeve surgery, 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 PT-OP-B Current Condition Start: 12/07/23 19:17 Freq: Status: Active Protocol: Document 12/17/23 14:34 LRN (Rec: 12/17/23 16:36 LRN [id number]) Current Condition History of Current Condition Onset Date 3 yrs ago Current Complaints Frequency of urination and urge urinary leakage . History of Current Condition Pt insidious onset 10 yrs ago for urinary incontinence, frequency of urination with urge. She saw a neurologist and was given oxybutynen with increasing potency over the years that never seemed to help. Has been off the medication for 6 months and had no change in her symptoms. 3 yrs ago things worsened to the point that she couldn't hold her urine sometimes for greater than 30 minutes. She has at times been able to go to [place] from [place] before having to stop to usee the bathroom (she uses the bathroom before leaving her house). Prior Treatments and Tests Oxybutynin for past 10 yrs, has been off the medication for 6 months. Developmental History Developmental History 2 daughters ages 21 & 25, both vaginal births w/o complications. First with epiziotomy. Treatment Goals Patient/Caregiver Goals Pt goals: Reduce urinary leakage to be able to kayak or travel 1 hr. Decrease urinary leakage with a cough, sneeze, laugh. Independent HEP at [place]. Current Functional Impairments (Reported) Functional Limitations- ADL's Rides [place] bike every night , 30-45'. 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 Personal Factors Other Personal Factors That May Effect Hx of: Bariatric sleeve Therapy/Recovery surgery, Teresa's disease, Hep A PT-OP-C Subjective Start: 12/07/23 19:17 Freq: Status: Active Protocol: Document 01/21/24 14:42 LRN (Rec: 01/21/24 15:38 LRN [id number]) OP-PT Subjective Patient Comments Patient Comments Stiffness in the mornings is 20% better. PT-OP-I Pelvic Floor Start: 12/07/23 19:17 Freq: Status: Active Protocol: Document 12/17/23 14:34 LRN (Rec: 12/17/23 16:36 LRN [id number]) Pelvic Floor Assessment Urine Urinary Symptoms Urge Sensation,Falling Out Feeling/Heavy Leakage Cause Cough,Exercise,Sneeze,Urge Other Leakage Causes Laughing Leaks Per Day Constant Voiding Frequency 6x/day Nocturia 3x Pads Used In 24 Hours 2 Washable period underwear/ day Urine Pad Type Depends Bowel Bowel Movement Frequency Every other day [place] Stool Chart Comments Types 2-3 occasionally, mostly type 7 Prolapse Cystocele Grade 2 Perineal Descent Resting Absent Bearing Present Contraction Ability Voluntary Contraction Weak Manual Muscle Testing Left 2 Manual Muscle Testing Right 1 Manual Muscle Testing Anterior 1 Manual Muscle Testing Posterior 2 Muscle Endurance (Seconds) 2 Number of Quick Contractions In 10 5 Seconds Comments Pelvic Floor Comments Pt PF strength of contraction weakened with each contraction . PT-OP-J Posture/Palpation/Skin Start: 12/07/23 19:17 Freq: Status: Active Protocol: Document 12/17/23 14:34 LRN (Rec: 12/17/23 16:36 LRN [id number]) Posture Evaluation Position Standing Head/C-Spine Posture Neutral Position L-Spine Posture Increased Lordosis Shoulder Posture (R) Elevated Scapula Posture (R) Elevated Pelvis Posture Anteriorly Tilted Weight Distribution Balanced Knee Posture (L) Genu Valgus,(R) Genu Valgus Comments Posture Comments Dowagers hump. PT-OP-K Range of Motion Start: 12/07/23 19:17 Freq: Status: Active Protocol: Document 12/17/23 14:34 LRN (Rec: 12/17/23 16:36 LRN [id number]) Lumbar Spine Range of Motion Lumbar Spine Active Degrees Testing Position Standing Flexion 70 Extension 10 Rotation Left 30 Rotation Right 20 Lateral Flexion Left 14 Lateral Flexion Right 8 ROM Limitations Soft Tissue Tightness Hip Goniometric Range of Motion Hip Right Passive Testing Position Supine Abduction 35 Internal Rotation 30 External Rotation 65 Left Passive Testing Position Supine Abduction 35 Internal Rotation 30 External Rotation 60 PT-OP-M Strength Start: 12/07/23 19:17 Freq: Status: Active Protocol: Document 12/17/23 14:34 LRN (Rec: 12/17/23 16:36 LRN [id number]) Trunk Strength Trunk Manual Muscle Testing Core Stabilization Pt has mild rotational core weakness as noted during MMT of LE's. Hip Strength Hip Manual Muscle Testing Right Flexion (L2) 3 Fair Extension (S1) 3 Fair Adduction 3+ Fair+ External Rotation 3 Fair Internal Rotation 3+ Fair+ Comments Strength is 5/5 except as indicated above. Left Flexion (L2) 4 Good Extension (S1) 3 Fair Abduction 4+ Good+ Comments Strength is 5/5 except as indicated above. PT-OP-Q Treatments Start: 12/07/23 19:17 Freq: Status: Active Protocol: Document 01/21/24 14:42 LRN (Rec: 01/21/24 15:38 LRN [id number]) Therapeutic Exercises Supine Exercises TA tightening Reps/Minutes 3' Comments Not able to palpate TA tightening Pelvic Tilt/Breath/Kegel on inhale Supine Exercise Name Kegel on inhale, then Kegel thru inhale/exhale. Reps/Minutes 15x each Deep Breathing Reps/Minutes 12' Comments Extra time needed for training , w/a lot of cuing & final reading of ex Piriformis stretch Side bilateral Reps/Minutes 60 SH x 1 Comments Extra time to determine max tolerated stretch SKTC Side bilateral Reps/Minutes 10 SH x 6 Comments Cued to not stretch into pain. Bowel Massage Supine Exercise Name Slow CCW circles- reviewed Reps/Minutes 1' Sidelying Exercises TA tightening Sidelying Exercise Name R sidelie weak TA Side bilateral Reps/Minutes 8' Comments Pt not able to tighten TA in R sidelie. Therapeutic Activity Therapeutic Activity Transfer training coordinating breathwork Name Review: Sup>Sit<>stand coordinating breathwork with each movement Reps/Minutes 2' Comments Verbal and phy cuing needed to perform correctly. Self-Care/Home Management Treatment Education Other Education Pt education in general vulvar and genital care. Activities Self-Care/Home Management Activities Issued HEP: Deep breathing. Issued handouts for Breathing, ex & PF; and for general vulvar and genital care. PT-OP-T Assessment and Plan Start: 12/07/23 19:17 Freq: Status: Active Protocol: Document 01/21/24 14:42 LRN (Rec: 01/21/24 15:38 LRN [id number]) Physical Therapy Assessment Goals Four Impairment LBP stiffness first in the morning. Impairment Trunk AROM: flex 70 deg's, Rot 30 deg's L, 20 deg's R; SB is 14 deg's L, 8 deg's R. Occasional LBP 11/10. Regulatory Analyst Goal (LTG) Decrease LB stiffness in the morning to improve mobility to get to bathroom first in the morning. 12/31/23: 10% less low back stiffness. 01/14/24: HEP: KTC and Piriformis stretch. Trial LTR , but pt had discomfort with movement. LTG Duration 12 wks-03/10/24 progressing 01/14/24 Three Impairment Urge urinary incontinence Impairment PF contraction fatigues after 2 secs hold. Short Term Goal (STG) Pt will be educated in PF urge deference technique to delay urination until toilet voiding . 12/24/23: Pt educated and practiced Urge deference technique. STG Duration 4 wks-01/14/24 (12/24/23: MET GOAL) Regulatory Analyst Goal (LTG) Improve PF endurance strength and modify pt's behavior such that the pt will be able to reduce and eliminate urinary leakage to be able to kayak or travel over 1 hr without having to stop to use the bathroom. LTG Duration 12 wks-03/10/24 Two Impairment Urinary Leakage with cough, sneeze, laugh, exercise Impairment PF strength: anterior & R lateral wall - 1/5; posterior & L lateral wall - 2/5 Short Term Goal (STG) Pt will be able to perform 10 Quick PF contractions in isolation of substitute muscles prior to fatigue. STG Duration 6 wks-01/28/24 Regulatory Analyst Goal (LTG) Improve PF Quick Contraction strength to 3/5 with pt able to eliminate urinary leakage with a cough, sneeze, laugh. LTG Duration 12 wks-03/10/24 One Impairment Pt lacks an independent self care HEP. Short Term Goal (STG) Pt educated in proper transfers to lessen core abdominal pressure with transfers and ADLs. 12/24/23: Initiated core pressure mgmt training for sup >sit. 12/31/23: Pt educated in core pressure mgmt of ADL body mechanics. STG Duration 4 wks-01/14/24 (12/31/23: MET GOAL) Regulatory Analyst Goal (LTG) Pt will be independent in a self care HEP for PF/hip/core strengthening and hip/trunk ROM exercises. 12/24/23: I/S pt in isolated Kegel with Ball squeeze. 12/31/23: I/S pt in Kegel with ADLs and transfers, hold 3 secs or greater. 01/14/24: HEP: Supine SKTC & Piriformis stretch 01/21/24: HEP: Deep breathing LTG Duration 12 wks-03/10/24 progressed 01/21/24 Assessment Summary Assessment 48 yo fem w/urge incontinence and habits that contribute to frequent voiding & need to urinate; urinary leakage due to PF weakness and low endurance w/cystocele grade 1; and R>L hip weakness, decreased LB mobility w/AM pain and stiff. Today pt reports not using squatty potty & less stiff in LB with stretches. Good recall of HEP . Able to do deep breathing ex after reading handout. L TA tightening is weaker when in R sidelie vs L sidelie. Pt able to perform TA in L sidelie. Physical Therapy Plan Frequency and Duration Frequency of Treatment 1x/Week Duration of treatment (weeks) 12 Plan of Care Start Date 12/17/23 Plan of Care End Date 03/10/24 Next Visit Focus/Plan Next Note Type Treatment Note Next Visit Plan Next: PF and , hip strengthening (R>L), progress Core/TA stab/strengthening; trunk (Flex R SB & Rot) and hip (flex, ER, IR) stretching. When cleared of vaginal infection, can start if needed Vemg biofeedback and strengthening. Educ/ex - modify pt's behavior to reduce/eliminate urinary leakage for kayaking or travel > 1 hr without having to stop to use BR. POC: Pt education, Manual therapy. ?Biofeedback (if no infection) with vaginal sensor . Therapeutic Exercises, Therapeutic Activities, Neuromuscular Reeducation.
--- NOTE | 2024-02-14 15:38 | PT.OTN ---
Current Diagnoses Lordosis, unspecified, lumbosacral region (02/14/24) Low back pain, unspecified (02/14/24) Muscle weakness (generalized) (02/14/24) Overactive bladder (02/14/24) Stress incontinence (female) (male) (02/14/24) Urge incontinence (02/14/24) Physical Therapy Treatment Note PT-OP-A Visit Information Start: 12/07/23 19:17 Freq: Status: Active Protocol: Document 02/14/24 14:37 LRN (Rec: 02/14/24 15:37 LRN [id number]) Out-Patient Physical Therapy Visit Information Visit Information Visit Type Treatment Note Visit Start Time 14:37 Visit Stop Time 15:17 Visit Number 6 Evaluation Information Evaluation Date 12/17/23 Precautions Precautions History of Bariatic sleeve surgery, 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 PT-OP-B Current Condition Start: 12/07/23 19:17 Freq: Status: Active Protocol: Document 12/17/23 14:34 LRN (Rec: 12/17/23 16:36 LRN [id number]) Current Condition History of Current Condition Onset Date 3 yrs ago Current Complaints Frequency of urination and urge urinary leakage . History of Current Condition Pt insidious onset 10 yrs ago for urinary incontinence, frequency of urination with urge. She saw a neurologist and was given oxybutynen with increasing potency over the years that never seemed to help. Has been off the medication for 6 months and had no change in her symptoms. 3 yrs ago things worsened to the point that she couldn't hold her urine sometimes for greater than 30 minutes. She has at times been able to go to [place] from [place] before having to stop to usee the bathroom (she uses the bathroom before leaving her house). Prior Treatments and Tests Oxybutynin for past 10 yrs, has been off the medication for 6 months. Developmental History Developmental History 2 daughters ages 21 & 25, both vaginal births w/o complications. First with epiziotomy. Treatment Goals Patient/Caregiver Goals Pt goals: Reduce urinary leakage to be able to kayak or travel 1 hr. Decrease urinary leakage with a cough, sneeze, laugh. Independent HEP at [place]. Current Functional Impairments (Reported) Functional Limitations- ADL's Rides [place] bike every night , 30-45'. 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 Personal Factors Other Personal Factors That May Effect Hx of: Bariatric sleeve Therapy/Recovery surgery, Teresa's disease, Hep A PT-OP-C Subjective Start: 12/07/23 19:17 Freq: Status: Active Protocol: Document 02/14/24 14:37 LRN (Rec: 02/14/24 15:37 LRN [id number]) OP-PT Subjective Patient Comments Patient Comments Can go 3 hrs w/o having to use bathroom now. Nighttime last 2 nights sleeping until 4am before having to use BR. Driving in car feels neeed to use BR more often. PT-OP-I Pelvic Floor Start: 12/07/23 19:17 Freq: Status: Active Protocol: Document 12/17/23 14:34 LRN (Rec: 12/17/23 16:36 LRN [id number]) Pelvic Floor Assessment Urine Urinary Symptoms Urge Sensation,Falling Out Feeling/Heavy Leakage Cause Cough,Exercise,Sneeze,Urge Other Leakage Causes Laughing Leaks Per Day Constant Voiding Frequency 6x/day Nocturia 3x Pads Used In 24 Hours 2 Washable period underwear/ day Urine Pad Type Depends Bowel Bowel Movement Frequency Every other day [place] Stool Chart Comments Types 2-3 occasionally, mostly type 7 Prolapse Cystocele Grade 2 Perineal Descent Resting Absent Bearing Present Contraction Ability Voluntary Contraction Weak Manual Muscle Testing Left 2 Manual Muscle Testing Right 1 Manual Muscle Testing Anterior 1 Manual Muscle Testing Posterior 2 Muscle Endurance (Seconds) 2 Number of Quick Contractions In 10 5 Seconds Comments Pelvic Floor Comments Pt PF strength of contraction weakened with each contraction . PT-OP-J Posture/Palpation/Skin Start: 12/07/23 19:17 Freq: Status: Active Protocol: Document 12/17/23 14:34 LRN (Rec: 12/17/23 16:36 LRN [id number]) Posture Evaluation Position Standing Head/C-Spine Posture Neutral Position L-Spine Posture Increased Lordosis Shoulder Posture (R) Elevated Scapula Posture (R) Elevated Pelvis Posture Anteriorly Tilted Weight Distribution Balanced Knee Posture (L) Genu Valgus,(R) Genu Valgus Comments Posture Comments Dowagers hump. PT-OP-K Range of Motion Start: 12/07/23 19:17 Freq: Status: Active Protocol: Document 12/17/23 14:34 LRN (Rec: 12/17/23 16:36 LRN [id number]) Lumbar Spine Range of Motion Lumbar Spine Active Degrees Testing Position Standing Flexion 70 Extension 10 Rotation Left 30 Rotation Right 20 Lateral Flexion Left 14 Lateral Flexion Right 8 ROM Limitations Soft Tissue Tightness Hip Goniometric Range of Motion Hip Right Passive Testing Position Supine Abduction 35 Internal Rotation 30 External Rotation 65 Left Passive Testing Position Supine Abduction 35 Internal Rotation 30 External Rotation 60 PT-OP-M Strength Start: 12/07/23 19:17 Freq: Status: Active Protocol: Document 12/17/23 14:34 LRN (Rec: 12/17/23 16:36 LRN [id number]) Trunk Strength Trunk Manual Muscle Testing Core Stabilization Pt has mild rotational core weakness as noted during MMT of LE's. Hip Strength Hip Manual Muscle Testing Right Flexion (L2) 3 Fair Extension (S1) 3 Fair Adduction 3+ Fair+ External Rotation 3 Fair Internal Rotation 3+ Fair+ Comments Strength is 5/5 except as indicated above. Left Flexion (L2) 4 Good Extension (S1) 3 Fair Abduction 4+ Good+ Comments Strength is 5/5 except as indicated above. PT-OP-Q Treatments Start: 12/07/23 19:17 Freq: Status: Active Protocol: Document 02/14/24 14:37 LRN (Rec: 02/14/24 15:37 LRN [id number]) Therapeutic Exercises Supine Exercises Ecc hip flex Supine Exercise Name TA/Reverse SLR Side bilateral Reps/Minutes 15x R, 10x L TA/pk/BKFO wTB Supine Exercise Name TA/Kegel/B BKFO/TBand - Long hold 10SH, Quick 1 SH Equipment Used Lev 1 TB Reps/Minutes 10x, 15x, respectively TA tight w/pk BKFO Supine Exercise Name TA/Kegel/B BKFO Reps/Minutes 10x TA tightening Reps/Minutes 1' Comments Not able to palpate TA tightening Kegel w/ball squeeze Supine Exercise Name TA/Kegel/ball squeeze - Quick 1 SH & Long hold 10SH Reps/Minutes 15x Sidelying Exercises TA/Kegel Clamshell Side bilateral Reps/Minutes 15x R, 10x L Comments Extra time for core stab trng with ex. TA/Kegel/Hip AB Sidelying Exercise Name Verbal review Reps/Minutes 15x R, 10x L TA/Kegel/Hip AD Side bilateral Reps/Minutes 15x R, 10x L Comments Extra time for core stab trng with ex. Self-Care/Home Management Treatment Education Other Education Discussed sitting posture at work vs in car. Discussed posture, clothes and fluid intake before car rides. Activities Self-Care/Home Management Activities Issued Lev 1 TB. Issued HEP: Reverse SLR, Sidelie TA/Kegel hip AB/AD, & TA/Kegel/clamshell reverse clamshell. PT-OP-T Assessment and Plan Start: 12/07/23 19:17 Freq: Status: Active Protocol: Document 02/14/24 14:37 LRN (Rec: 02/14/24 15:37 LRN [id number]) Physical Therapy Assessment Goals Four Impairment LBP stiffness first in the morning. Impairment Trunk AROM: flex 70 deg's, Rot 30 deg's L, 20 deg's R; SB is 14 deg's L, 8 deg's R. Occasional LBP /10. Halfway Goal (LTG) Decrease LB stiffness in the morning to improve mobility to get to bathroom first in the morning. 12/31/23: 10% less low back stiffness. 01/14/24: HEP: KTC and Piriformis stretch. Trial LTR , but pt had discomfort with movement. LTG Duration 12 wks-03/10/24 progressing 01/14/24 Three Impairment Urge urinary incontinence Impairment PF contraction fatigues after 2 secs hold. Short Term Goal (STG) Pt will be educated in PF urge deference technique to delay urination until toilet voiding . 12/24/23: Pt educated and practiced Urge deference technique. STG Duration 4 wks-01/14/24 (12/24/23: MET GOAL) Procurement Agent Goal (LTG) Improve PF endurance strength and modify pt's behavior such that the pt will be able to reduce and eliminate urinary leakage to be able to kayak or travel over 1 hr without having to stop to use the bathroom. LTG Duration 12 wks-03/10/24 Two Impairment Urinary Leakage with cough, sneeze, laugh, exercise Impairment PF strength: anterior & R lateral wall - 1/5; posterior & L lateral wall - 2/5 Short Term Goal (STG) Pt will be able to perform 10 Quick PF contractions in isolation of substitute muscles prior to fatigue. STG Duration 6 wks-01/28/24 Halfway Goal (LTG) Improve PF Quick Contraction strength to 3/5 with pt able to eliminate urinary leakage with a cough, sneeze, laugh. LTG Duration 12 wks-03/10/24 One Impairment Pt lacks an independent self care HEP. Short Term Goal (STG) Pt educated in proper transfers to lessen core abdominal pressure with transfers and ADLs. 12/24/23: Initiated core pressure mgmt training for sup >sit. 12/31/23: Pt educated in core pressure mgmt of ADL body mechanics. STG Duration 4 wks-01/14/24 (12/31/23: MET GOAL) Halfway Goal (LTG) Pt will be independent in a self care HEP for PF/hip/core strengthening and hip/trunk ROM exercises. 12/24/23: I/S pt in isolated Kegel with Ball squeeze. 12/31/23: I/S pt in Kegel with ADLs and transfers, hold 3 secs or greater. 01/14/24: HEP: Supine SKTC & Piriformis stretch 01/21/24: HEP: Deep breathing 02/14/24: HEP: Hip strengthenig: Reverse SLR, hip/PF strengthening: Hip AD, Clamshell/reverse clamshell LTG Duration 12 wks-03/10/24 progressed 02/14/24 Assessment Summary Assessment 48 yo fem w/urge incontinence and habits that contribute to frequent voiding & need to urinate; urinary leakage due to PF weakness and low endurance w/cystocele grade 1; and R>L hip weakness, decreased LB mobility w/AM pain and stiff. Pt feeling fatigued after holding PF contractions 10 secs with hip ex's. She is consistent with her HEP, is sleeping longer through the night and has increased time between voids to 3 hrs. Physical Therapy Plan Frequency and Duration Frequency of Treatment 1x/Week Duration of treatment (weeks) 12 Plan of Care Start Date 12/17/23 Plan of Care End Date 03/10/24 Next Visit Focus/Plan Next Note Type Treatment Note Next Visit Plan Next: I/S pt to be checked for clearance from vaginal infection. Review hip/PF strengthening (R>L) and if can perform 10 Quick PF contractions in isolation of substitute muscles prior to fatigue, Add to HEP & issue hip strengthening (ext, reversed clamshell, hip AB). Issue HEP: Kegel w/ball squeeze and Pk BKFO w/TB. Progress Core/TA stab/ strengthening; trunk (Flex R SB & Rot) and hip (flex, ER, IR) stretching. When cleared of vaginal infection, can start if needed Vemg biofeedback and strengthening. Educ/ex - modify pt's behavior to reduce/eliminate urinary leakage for kayaking or travel > 1 hr without having to stop to use BR. POC: Urge incont/weakness rehab, Pt education, Manual therapy. ?Biofeedback (if no infection) with vaginal sensor . Therapeutic Exercises, Therapeutic Activities, Neuromuscular Reeducation.
--- NOTE | 2025-01-13 12:10 | PT.OPDS ---
Current Diagnoses Lordosis, unspecified, lumbosacral region (02/14/24) Low back pain, unspecified (02/14/24) Muscle weakness (generalized) (02/14/24) Overactive bladder (02/14/24) Stress incontinence (female) (male) (02/14/24) Urge incontinence (02/14/24) Visit Care Team Role Provider Type ALICE Owens Attending Provider Non-Staff Family Provider Primary Care Provider Referring Provider Specialty: Nursing Address: [address] [place] [address], [address], Pending sale to [facility] Email: Visit Number Visit Number 6 Discharge Summary PT-OP-B Current Condition Start: 12/07/23 19:17 Freq: Status: Active Protocol: Document 12/17/23 14:34 LRN (Rec: 12/17/23 16:36 LRN [id number]) Current Condition History of Current Condition Onset Date 3 yrs ago Current Complaints Frequency of urination and urge urinary leakage . History of Current Condition Pt insidious onset 10 yrs ago for urinary incontinence, frequency of urination with urge. She saw a neurologist and was given oxybutynen with increasing potency over the years that never seemed to help. Has been off the medication for 6 months and had no change in her symptoms. 3 yrs ago things worsened to the point that she couldn't hold her urine sometimes for greater than 30 minutes. She has at times been able to go to [place] from [place] before having to stop to usee the bathroom (she uses the bathroom before leaving her house). Prior Treatments and Tests Oxybutynin for past 10 yrs, has been off the medication for 6 months. Developmental History Developmental History 2 daughters ages 21 & 25, both vaginal births w/o complications. First with epiziotomy. Treatment Goals Patient/Caregiver Goals Pt goals: Reduce urinary leakage to be able to kayak or travel 1 hr. Decrease urinary leakage with a cough, sneeze, laugh. Independent HEP at [place]. Current Functional Impairments (Reported) Functional Limitations- ADL's Rides [place] bike every night , 30-45'. 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 Personal Factors Other Personal Factors That May Effect Hx of: Bariatric sleeve Therapy/Recovery surgery, Teresa's disease, Hep A PT-OP-C Subjective Start: 12/07/23 19:17 Freq: Status: Active Protocol: Document 02/14/24 14:37 LRN (Rec: 02/14/24 15:37 LRN [id number]) OP-PT Subjective Patient Comments Patient Comments Can go 3 hrs w/o having to use bathroom now. Nighttime last 2 nights sleeping until 4am before having to use BR. Driving in car feels neeed to use BR more often. PT-OP-I Pelvic Floor Start: 12/07/23 19:17 Freq: Status: Active Protocol: Document 12/17/23 14:34 LRN (Rec: 12/17/23 16:36 LRN [id number]) Pelvic Floor Assessment Urine Urinary Symptoms Urge Sensation,Falling Out Feeling/Heavy Leakage Cause Cough,Exercise,Sneeze,Urge Other Leakage Causes Laughing Leaks Per Day Constant Voiding Frequency 6x/day Nocturia 3x Pads Used In 24 Hours 2 Washable period underwear/ day Urine Pad Type Depends Bowel Bowel Movement Frequency Every other day [place] Stool Chart Comments Types 2-3 occasionally, mostly type 7 Prolapse Cystocele Grade 2 Perineal Descent Resting Absent Bearing Present Contraction Ability Voluntary Contraction Weak Manual Muscle Testing Left 2 Manual Muscle Testing Right 1 Manual Muscle Testing Anterior 1 Manual Muscle Testing Posterior 2 Muscle Endurance (Seconds) 2 Number of Quick Contractions In 10 5 Seconds Comments Pelvic Floor Comments Pt PF strength of contraction weakened with each contraction . PT-OP-J Posture/Palpation/Skin Start: 12/07/23 19:17 Freq: Status: Active Protocol: Document 12/17/23 14:34 LRN (Rec: 12/17/23 16:36 LRN [id number]) Posture Evaluation Position Standing Head/C-Spine Posture Neutral Position L-Spine Posture Increased Lordosis Shoulder Posture (R) Elevated Scapula Posture (R) Elevated Pelvis Posture Anteriorly Tilted Weight Distribution Balanced Knee Posture (L) Genu Valgus,(R) Genu Valgus Comments Posture Comments Dowagers hump. PT-OP-K Range of Motion Start: 12/07/23 19:17 Freq: Status: Active Protocol: Document 12/17/23 14:34 LRN (Rec: 12/17/23 16:36 LRN [id number]) Lumbar Spine Range of Motion Lumbar Spine Active Degrees Testing Position Standing Flexion 70 Extension 10 Rotation Left 30 Rotation Right 20 Lateral Flexion Left 14 Lateral Flexion Right 8 ROM Limitations Soft Tissue Tightness Hip Goniometric Range of Motion Hip Right Passive Testing Position Supine Abduction 35 Internal Rotation 30 External Rotation 65 Left Passive Testing Position Supine Abduction 35 Internal Rotation 30 External Rotation 60 PT-OP-M Strength Start: 12/07/23 19:17 Freq: Status: Active Protocol: Document 12/17/23 14:34 LRN (Rec: 12/17/23 16:36 LRN [id number]) Trunk Strength Trunk Manual Muscle Testing Core Stabilization Pt has mild rotational core weakness as noted during MMT of LE's. Hip Strength Hip Manual Muscle Testing Right Flexion (L2) 3 Fair Extension (S1) 3 Fair Adduction 3+ Fair+ External Rotation 3 Fair Internal Rotation 3+ Fair+ Comments Strength is 5/5 except as indicated above. Left Flexion (L2) 4 Good Extension (S1) 3 Fair Abduction 4+ Good+ Comments Strength is 5/5 except as indicated above. PT-OP-T Assessment and Plan Start: 12/07/23 19:17 Freq: Status: Active Protocol: Document 01/13/25 12:08 KJ (Rec: 01/13/25 12:10 KJ Laptop) Physical Therapy Assessment Goals Four Impairment LBP stiffness first in the morning. Impairment Trunk AROM: flex 70 deg's, Rot 30 deg's L, 20 deg's R; SB is 14 deg's L, 8 deg's R. Occasional LBP 3/10. Nursing Home Goal (LTG) Decrease LB stiffness in the morning to improve mobility to get to bathroom first in the morning. 12/31/23: 10% less low back stiffness. 01/14/24: HEP: KTC and Piriformis stretch. Trial LTR , but pt had discomfort with movement. LTG Duration 12 wks-03/10/24 progressing 01/14/24 Three Impairment Urge urinary incontinence Impairment PF contraction fatigues after 2 secs hold. Short Term Goal (STG) Pt will be educated in PF urge deference technique to delay urination until toilet voiding . 12/24/23: Pt educated and practiced Urge deference technique. STG Duration 4 wks-01/14/24 (12/24/23: MET GOAL) Die Holder Goal (LTG) Improve PF endurance strength and modify pt's behavior such that the pt will be able to reduce and eliminate urinary leakage to be able to kayak or travel over 1 hr without having to stop to use the bathroom. LTG Duration 12 wks-03/10/24 Two Impairment Urinary Leakage with cough, sneeze, laugh, exercise Impairment PF strength: anterior & R lateral wall - 1/5; posterior & L lateral wall - 2/5 Short Term Goal (STG) Pt will be able to perform 10 Quick PF contractions in isolation of substitute muscles prior to fatigue. STG Duration 6 wks-01/28/24 Die Holder Goal (LTG) Improve PF Quick Contraction strength to 3/5 with pt able to eliminate urinary leakage with a cough, sneeze, laugh. LTG Duration 12 wks-03/10/24 One Impairment Pt lacks an independent self care HEP. Short Term Goal (STG) Pt educated in proper transfers to lessen core abdominal pressure with transfers and ADLs. 12/24/23: Initiated core pressure mgmt training for sup >sit. 12/31/23: Pt educated in core pressure mgmt of ADL body mechanics. STG Duration 4 wks-01/14/24 (12/31/23: MET GOAL) Die Holder Goal (LTG) Pt will be independent in a self care HEP for PF/hip/core strengthening and hip/trunk ROM exercises. 12/24/23: I/S pt in isolated Kegel with Ball squeeze. 12/31/23: I/S pt in Kegel with ADLs and transfers, hold 3 secs or greater. 01/14/24: HEP: Supine SKTC & Piriformis stretch 01/21/24: HEP: Deep breathing 02/14/24: HEP: Hip strengthenig: Reverse SLR, hip/PF strengthening: Hip AD, Clamshell/reverse clamshell LTG Duration 12 wks-03/10/24 progressed 02/14/24 Progress Towards Goals Progress Towards Goals Progressing Toward Goals Assessment Summary Assessment Initial PT evaluation 12/17/23. Pt attended 5 subsequent appointments. Pt cancelled all remaining appointments without rescheduling. Physical Therapy Plan Discharge Physical Therapy Discharge Reasons No Longer Attending PT
== END 2025-01-13 14:39 | disposition home or self-care (01) ==
LOC: PHYS 14:30
PROVIDERS: Family Provider Nurse Practitioner Family; PCP Nurse Practitioner Family; Referring Provider Nurse Practitioner Family; Visit Provider Nurse Practitioner Family
DX: N32.81 Overactive bladder (principal); N39.3 Stress incontinence (female) (male); N39.41 Urge incontinence; M54.50 Low back pain, unspecified; M62.81 Muscle weakness (generalized); M40.57 Lordosis, unspecified, lumbosacral region
CPT/HCPCS: 97110; 97162; 97530; 97535

== ENCOUNTER 2024-03-22 18:06 | Emergency (ER) | payer OTHER, SELFPAY ==
[2024-03-22 18:10] VITALS: BP 109/74; PULSE 98; RESP 18; TEMP 36.9; O2SAT 97; BMI 33.5
[2024-03-22 18:17] VITALS: PULSE 101; O2SAT 97
[2024-03-22 18:18] VITALS: BP 109/74; PULSE 102; O2SAT 97
[2024-03-22 18:30] VITALS: BP 107/66; PULSE 96; O2SAT 97
--- NOTE | 2024-03-22 18:37 | ED_ITS ---
HPI - URI/Sore Throat General Chief Complaint: Upper Respiratory Symptoms Stated Complaint: covid+ Time Seen by Provider: 03/22/24 18:37 Source: patient and family Mode of arrival: Ambulatory History of Present Illness HPI Narrative: 48-year-old female with 2 days duration upper respiratory infection symptoms, muscle aches, sore throat, dry cough, chest discomfort with coughing, home COVID test was negative yesterday, home COVID test was positive today, she is interested in taking Paxlovid antiviral treatment. She had prior COVID vaccination series, last booster August 2023. She has no chronic lung disease, no asthma, no renal disease, no liver disease. Some chest discomfort with coughing. No pain to jaw or neck or arm. Denies difficulty with breathing. Related Data Previous Rx's Medication Instructions Recorded nirmatrelvir 300 mg (150 mg See Rx Instructions PO .COMPLEX 03/22/24 x2)-ritonavir 100 mg tablet,dose #30 ea pack (Paxlovid) Allergies Allergy/AdvReac Type Severity Reaction Status Date / Time No Known Drug Allergies Allergy Verified 03/22/24 18:24 Review of Systems Review of Systems Narrative: Per HPI Patient History Social History Smoking Status: Never smoker Smoking Status: Never smoker Substance Use Type: does not use Exam Narrative Exam Narrative: GENERAL: Well-developed patient, in mild distress. HEAD: Atraumatic. Normocephalic. EYES: Pupils equal round and reactive. Extraocular motions intact. No scleral icterus. No injection or drainage. ENT: Nose without bleeding, purulent drainage. Throat without erythema, tonsillar hypertrophy or exudate. Airway patent. NECK: Trachea midline. Non tender CARDIOVASCULAR: Regular rate and rhythm without murmurs, gallops, or rubs. RESPIRATORY: Clear to auscultation. Breath sounds equal bilaterally. No wheezes, rales, or rhonchi. GASTROINTESTINAL: Abdomen soft, non-tender, nondistended. EXTREMITIES: No edema or joint tenderness. BACK: Nontender without deformity or crepitance. No flank tenderness. NEURO: AOx3. SKIN: No rash or erythema of visible areas Initial Vital Signs Initial Vital Signs: Vital Signs Temperature 98.5 F 03/22/24 18:10 Pulse Rate 98 H 03/22/24 18:10 Respiratory Rate 18 03/22/24 18:10 Blood Pressure 109/74 03/22/24 18:10 Pulse Oximetry 97 03/22/24 18:10 Oxygen Delivery Method Room Air 03/22/24 18:10 Course Vital Signs Vital signs: Vital Signs - 8 hr 03/22/24 18:10 03/22/24 18:17 03/22/24 18:18 Temperature 98.5 F Pulse Rate 98 H 101 H 102 H Respiratory Rate 18 Blood Pressure 109/74 Pulse Oximetry 97 97 97 Oxygen Delivery Method Room Air 03/22/24 18:18 03/22/24 18:30 03/22/24 18:30 Temperature Pulse Rate 96 H Respiratory Rate Blood Pressure 109/74 107/66 Pulse Oximetry 97 Oxygen Delivery Method MDM - URI/Sore Throat MDM Narrative Medical decision making narrative: 48-year-old female who is healthy, had prior COVID vaccination series, COVID booster August 2023, now with 2 days duration of upper respiratory infection symptoms, home COVID negative yesterday but positive today. Symptoms within 5 days, she is interested in seeking Paxlovid prescription. She denies liver disease, kidney disease. We will send prescription to her pharmacy, she requests [facility] in [place], electronically sent, start doses as soon as possible. Return precautions discussed. Consider use of home pulse oximetry to check oxygen levels, excellent oxygen level here, recheck ED if less than 90%. Return precautions discussed. Home with . Discharge Plan Departure Patient Disposition: Home Clinical Impression: COVID-19 Instructions: DI for COVID-19 (Suspected or Confirmed ) Activity Restrictions/Additional Instructions: Reported upper respiratory infections with home positive COVID test today, less than 5 days duration of treatment, interested in Paxlovid antiviral therapy, prescription sent to your pharmacy at [place] [facility]. Start taking the antiviral medication as soon as possible as soon as it is available from the pharmacy. Recheck with your doctor if not improving in the next couple of days. Consider use of home pulse oximeter to monitor your home oxygen level, recheck if less than 90% saturation. Your oxygen levels were excellent here in the emergency department. Return if any change worsening symptoms or any concerns prior Prescriptions: New Paxlovid 300 mg (150 mg x 2)-100 mg tablets,dose pack See Rx Instructions .ROUTE .COMPLEX Qty: 30 0RF Rx Instructions: take TWO 150 mg tablets of nirmatrelvir with ONE 100 mg tablet of ritonavir twice daily for 5 days Referrals: Beronica Judd FNP-C [Primary Care Provider] - Stand Alone Forms: Patient Portal/API
== END 2024-03-22 18:50 | disposition home or self-care (01) ==
PROVIDERS: Emergency Provider Emergency Medicine; Family Provider Nurse Practitioner Family; PCP Nurse Practitioner Family
DX: U07.1 COVID-19 (principal)
CPT/HCPCS: 99281